=== PATIENT | male | born 1980 | race Caucasian/White ===

== ENCOUNTER 2021-02-17 22:23 | Emergency (ER) | payer BC ==
[2021-02-17] MEDS ORDERED: Fentanyl 100 MCG/2 ML VIAL ONE ×2 (22:34→23:36)
[2021-02-17] MEDS ORDERED: Ondansetron PF 4 MG/2 ML Vial ONE (22:35)
[2021-02-17] MEDS ORDERED: Ciprofloxacin Lactate/D5W 400 mg/200 ml Premix ONE ×2 (22:55→22:56)
[2021-02-17] MEDS ORDERED: hydrOXYzine 25 MG TAB ONE (22:55)
[2021-02-17] MEDS ORDERED: Boostrix 0.5 ML (Tdap) VIAL ONE (23:36)
== END 2021-02-17 23:45 | disposition short-term general hospital (02) ==
LOC: BURERS 22:23
DX: S02.832A Fracture of medial orbital wall, left side, initial encounter for closed fracture (principal); S02.32XA Fracture of orbital floor, left side, initial encounter for closed fracture; S01.111A Laceration without foreign body of right eyelid and periocular area, initial encounter; S80.811A Abrasion, right lower leg, initial encounter; I10 Essential (primary) hypertension; Z23 Encounter for immunization; F17.220 Nicotine dependence, chewing tobacco, uncomplicated; Z79.899 Other long term (current) drug therapy; X08.8XXA Exposure to other specified smoke, fire and flames, initial encounter
CPT/HCPCS: 70480; 90471; 90715; 96374; 96375; 96376; J0744; J2405; J3010